=== PATIENT | female | born 1955 | race Caucasian/White ===

== ENCOUNTER 2017-05-04 00:59 | Emergency (ER) | payer OTHER ==
[~2017-05-04] VITALS: Ht 157.5 cm; Wt 88.0 kg
--- NOTE | 2017-05-04 01:25 | ED NECK/BACK PAIN COMPLAINT ---
History of Present Illness General Chief Complaint: Low Back Pain/Injury Stated Complaint: LOW BACK PAIN Source: patient, family, old records Exam Limitations: no limitations Vital Signs & Intake/Output Vital Signs & Intake/Output Vital Signs Date Time Temp Pulse Resp B/P B/P Pulse O2 O2 Flow FiO2 Mean Ox Delivery Rate 05/04 0136 96 05/04 0133 96.9 85 18 163/80 98 Room Air Allergies Coded Allergies: NO KNOWN ALLERGIES (04/01/13) Reconcile Medications Cyclobenzaprine HCl 10 MG TABLET 1 TAB PO Q8P PAIN OR SPASM Ibuprofen 600 MG TABLET 1 TAB PO TID PRN PAIN with food Methylprednisolone. (Medrol) 4 MG TAB.DS.PK 1 DP PO AD SCIATICA 6 on day 1 then reduce by one tablet daily until gone Oxycodone HCl/Acetaminophen (Percocet 5-325 MG Tablet) 5 MG-325 MG TABLET 1-2 TAB PO Q6P PRN PAIN Triage Nurses Notes Reviewed? yes HPI: Patient presented with low back pain radiating down her right leg for the past week. There's been no known trauma. The symptoms have been worsening. Patient was unable to sleep tonight secondary to pain. Patient cannot find a position of comfort. Patient states it hurts when she is standing up seemed entirely down. The pain is aching and throbbing in nature. Patient denies any weakness or numbness. There is no incontinence of bowel or bladder. The pain is 10 on a 10. Past History Medical History Any Pertinent Medical History? see below for history Cardiovascular: hypertension, hyperlipidemia Psychiatric: depression Endocrine: diabetes Surgical History Surgical History: non-contributory Psychosocial History What is your primary language [place] Tobacco Use: Never used ETOH Use: denies use Illicit Drug Use: denies illicit drug use Family History Hx Contributory? No Review of Systems Review of Systems Constitutional: Reports: no symptoms. Eyes: Reports: no symptoms. Ears, Nose, Throat, Mouth: Reports: no symptoms. Respiratory: Reports: no symptoms. Cardiovascular: Reports: no symptoms. Gastrointestinal/Abdominal: Reports: no symptoms. Musculoskeletal: Reports: see HPI, back pain. Skin: Reports: no symptoms. Neurological/Psychological: Reports: no symptoms. All Other Systems: Reviewed and Negative Physical Exam Physical Exam General Appearance: well developed/nourished, mild distress Head: atraumatic Eyes: Bilateral: PERRL, EOMI. Ears, Nose, Throat, Mouth: hearing grossly normal, moist mucous membrane Neck: normal inspection, supple, full range of motion Respiratory: normal breath sounds, chest non-tender, no respiratory distress, lungs clear Cardiovascular: regular rate/rhythm, normal peripheral pulses Gastrointestinal: normal bowel sounds, soft, non-tender Back: normal inspection Extremities: normal range of motion Straight Leg Raising: Right: Negative. Left: Negative. DTR: Patellar: 4: L4 Right, L4 Left. Achilles: 3: S1 Right, S1 Left. Neurologic/Psych: no motor/sensory deficits, awake, alert, oriented x 3, normal mood/affect Skin: intact, normal color, warm/dry Progress Differential Diagnosis: cauda equina syn, herniated disc, myofascial strain, sciatica, spinal cord inj, T/L spine injury Plan of Care: Current Medications Sig/Britany Start time Last Medication Dose Stop Time Status Admin Cyclobenzaprine HCl 10 MG ONCE ONE 05/04 130 UNVr (Flexeril 10MG Tab) 05/04 131 Ketorolac 30 MG ONCE ONE 05/04 130 UNVr Tromethamine 05/04 131 (Toradol) Prednisone 60 MG ONCE ONE 05/04 130 UNVr 05/04 131 Departure Departure Disposition: HOME OR SELF CARE Condition: Stable Clinical Impression Primary Impression: Sciatica Qualifiers: Laterality: right Qualified Code: M54.31 - Sciatica, right side Referrals: GABBI IBARRA,IMMANUEL Barragan (PCP/Family) Additional Instructions: USE MOIST HEAT FOLLOW UP WITH YOUR REGUALR DOCTOR REUTNR FOR ANY CONCERNS Departure Forms: Customer Survey General Discharge Information Prescriptions: Current Visit Scripts Cyclobenzaprine HCl 1 TAB PO Q8P #20 TAB Methylprednisolone. (Medrol) 1 DP PO AD #1 DP 6 on day 1 then reduce by one tablet daily until gone Ibuprofen 1 TAB PO TID PRN PAIN #20 TAB with food Oxycodone HCl/Acetaminophen (Percocet 5-325 MG Tablet) 1-2 TAB PO Q6P PRN PAIN #20 TAB
[2017-05-04 01:33] VITALS: BP 163/80
[2017-05-04] MEDS ORDERED: MEDROL4 M2 PO (02:13)
[2017-05-04] MEDS ORDERED: IBUPROFEN600 M1 PO (02:13)
[2017-05-04] MEDS ORDERED: PERCOCET 5-3251 EACH PO (02:13)
[2017-05-04] MEDS ORDERED: CYCLOBENZAPRINE10 M1 PO (02:13)
== END 2017-05-04 02:21 ==
LOC: ERH 00:59
DX: M54.41 Lumbago with sciatica, right side (principal)
CPT/HCPCS: 96372; J1885